=== PATIENT | female | born 1950 | race Caucasian/White ===

== ENCOUNTER 2023-05-01 10:13 | Inpatient (IN) | payer OTHER, MEDICARE ==
[~2023-05-01] VITALS: Ht 165.1 cm; Wt 41.4 kg
[2023-05-01 10:17] VITALS: BP_SYST 151; PULSE 79; RESP 18; TEMP 97.9; O2SAT 99
[2023-05-01 10:52] LABS: BASOPHILS % (AUTO) 0.6 % (0.0-2.0); EOSINOPHILS % (AUTO) 0.3 % (0.0-4.0); HEMATOCRIT 43.5 % (36-48); HEMOGLOBIN 14.8 g/dL (12.0-16.0); LYMPHOCYTES # (AUTO) 0.6 K/uL (1.0-5.5); LYMPHOCYTES % (AUTO) 7.7 % (20.5-51.5); MEAN CORPUSCULAR HEMOGLOBIN 32 pg (27-31); MEAN CORPUSCULAR HGB CONC 34 % (32-36); MEAN CORPUSCULAR VOLUME 94 fL (79.0-98.0); MONOCYTES # (AUTO) 0.9 K/uL (0.0-1.0); MONOCYTES % (AUTO) 10.8 % (1.7-9.3); NEUTROPHILS # (AUTO) 6.7 K/uL (1.8-7.7); NEUTROPHILS % (AUTO) 80.6 % (40.0-70.0); PLATELET COUNT (AUTO) 262 K/uL (130-430); RED BLOOD CELL COUNT(AUTO) 4.65 MIL/uL (4.2-6.2); RED CELL DISTRIBUTION WIDTH 13.4 % (9.0-15.0); WHITE BLOOD COUNT (AUTO) 8.3 K/uL (4.8-10.8)
[2023-05-01 11:07] LABS: INR 1.1 (0.8-1.2); PROTHROMBIN TIME 11.4 SECS (9.5-12.5)
[2023-05-01 11:08] LABS: ANION GAP 7 (5-15); CALCIUM 9.8 mg/dL (8.4-11.0); CARBON DIOXIDE 27 mmol/L (23-29); CHLORIDE 93 mmol/L (98-107); CREATININE 0.66 mg/dL (0.55-1.30); GLUCOSE 113 mg/dL (74-106); POTASSIUM 3.1 mmol/L (3.5-5.1); SODIUM SERUM 127 mmol/L (136-145); UREA NITROGEN, BLOOD 11 mg/dL (8-21)
[2023-05-01 11:18] LABS: ALANINE AMINOTRANSFERASE 51 U/L (12-78); ALBUMIN 3.7 g/dL (3.4-4.8); ASPARTATE AMINOTRANSFERASE 70 U/L (10-37); CREATINE KINASE, TOTAL 246 U/L (26-192); THYROID STIMULATING HORMONE 1.03 uIu/mL (0.34-4.82); TOTAL BILIRUBIN 0.4 mg/dL (0.0-1.0); TOTAL PROTEIN, SERUM 8.5 g/dL (6.4-8.3)
[2023-05-01 11:52] LABS: ACETONE, SERUM NEGATIVE (NEGATIVE)
[2023-05-01 12:15] LABS: CKMB RELATIVE INDEX 3.8 (0.0-2.9); CREATINE KINASE MB 9.4 ng/mL (0-3.6)
[2023-05-01] MEDS ORDERED: NACL 0.9% 1,000 ML IV ONE (12:15)
[2023-05-01] MEDS ORDERED: ROSU20TA73 PO (12:32)
[2023-05-01] MEDS ORDERED: AZEL137S7 NS (12:32)
[2023-05-01] MEDS ORDERED: LAMO25TA5 PO (12:32)
[2023-05-01] MEDS ORDERED: TRIA15CR4 RIGHT EAR (12:32)
[2023-05-01] MEDS ORDERED: SERT-436 PO (12:32)
[2023-05-01] MEDS ORDERED: MEMA28CA16 PO (12:32)
[2023-05-01] MEDS ORDERED: METRONIDAZOLE (12:32)
[2023-05-01] MEDS ORDERED: FLUO15GE BC (12:32)
[2023-05-01] MEDS ORDERED: POTASSIUM CHLORIDE 20 MEQ TAB.PRT.SR PO ONE (13:00)
[2023-05-01] MEDS ORDERED: LORazepam 2 MG/ML VIAL IVP PRN (13:45)
[2023-05-01] MEDS ORDERED: MAGNESIUM SULFATE 50 ML IV PRN (13:45)
[2023-05-01] MEDS ORDERED: ACETAMINOPHEN 325 MG TABLET PO PRN (13:45)
[2023-05-01] MEDS ORDERED: POTASSIUM CHLORIDE 20 MEQ TAB.PRT.SR PO PRN (13:45)
[2023-05-01] MEDS ORDERED: ONDANSETRON HCL 4 MG/2 ML VIAL IVP PRN (13:45)
[2023-05-01] MEDS ORDERED: DOCUSATE SODIUM 100 MG CAPSULE PO PRN (13:45)
[2023-05-01] MEDS ORDERED: ZOLPIDEM TARTRATE 5 MG TABLET PO PRN (13:45)
[2023-05-01] MEDS ORDERED: MUPIROCIN 2% TOPICAL OINTMENT 22 GM NS PRN (13:45)
[2023-05-01 15:42] VITALS: BP_SYST 152; PULSE 67; RESP 17; TEMP 97.5
[2023-05-01] MEDS: NACL 0.9% 1,000 ML IV SCH (16:55)
[2023-05-01 17:21] VITALS: BP_SYST 142; PULSE 68; RESP 16; TEMP 97.2; O2SAT 99
[2023-05-01] MEDS: ATORVASTATIN 20 MG TABLET PO SCH (20:57)
[2023-05-01] MEDS: LamoTRIgine 25 MG TABLET PO SCH (20:58)
[2023-05-01] MEDS: HEPARIN SODIUM,PORCINE 5,000 UNITS/ML VIAL SUBCUT SCH (20:59)
[2023-05-02 01:12] VITALS: BP_SYST 147; PULSE 68; RESP 18; TEMP 96.9; O2SAT 95
[2023-05-02] MEDS: NACL 0.9% 1,000 ML IV SCH ×2 (04:49→18:59)
[2023-05-02 06:20] LABS: BILIRUBIN,URINE NEGATIVE (NEGATIVE); CLARITY/URINE CLEAR (CLEAR); COLOR,URINE YELLOW (YELLOW); GLUCOSE,URINE NEGATIVE (NEGATIVE); KETONES,URINE NEGATIVE (NEGATIVE); LEUKOCYTE ESTERASE ,URINE NEGATIVE (NEGATIVE); NITRITE, URINE NEGATIVE (NEGATIVE); PROTEIN URINE NEGATIVE (NEGATIVE); UROBILINOGEN,URINE 0.2 (0.2-1.0)
[2023-05-02 06:24] LABS: BASOPHILS # (AUTO) 0.1 K/uL (0.0-0.2); BASOPHILS % (AUTO) 1.3 % (0.0-2.0); EOSINOPHILS # (AUTO) 0.2 K/uL (0.0-0.4); EOSINOPHILS % (AUTO) 3.1 % (0.0-4.0); HEMATOCRIT 41.1 % (36-48); HEMOGLOBIN 13.9 g/dL (12.0-16.0); LYMPHOCYTES # (AUTO) 0.9 K/uL (1.0-5.5); LYMPHOCYTES % (AUTO) 15.3 % (20.5-51.5); MEAN CORPUSCULAR HEMOGLOBIN 32 pg (27-31); MEAN CORPUSCULAR HGB CONC 34 % (32-36); MEAN CORPUSCULAR VOLUME 94 fL (79.0-98.0); MONOCYTES # (AUTO) 0.7 K/uL (0.0-1.0); MONOCYTES % (AUTO) 11.4 % (1.7-9.3); NEUTROPHILS % (AUTO) 68.9 % (40.0-70.0); PLATELET COUNT (AUTO) 245 K/uL (130-430); RED BLOOD CELL COUNT(AUTO) 4.39 MIL/uL (4.2-6.2); RED CELL DISTRIBUTION WIDTH 13.2 % (9.0-15.0)
[2023-05-02 06:24] LABS: BLOOD, URINE TRACE (NEGATIVE)
[2023-05-02 06:28] LABS: BACTERIA,URINE None Seen /HPF (None Seen)
[2023-05-02 06:45] LABS: ANION GAP 8 (5-15); CALCIUM 8.8 mg/dL (8.4-11.0); CARBON DIOXIDE 23 mmol/L (23-29); CHLORIDE 96 mmol/L (98-107); CREATININE 0.49 mg/dL (0.55-1.30); GLUCOSE 89 mg/dL (74-106); POTASSIUM 3.3 mmol/L (3.5-5.1); SODIUM SERUM 127 mmol/L (136-145); UREA NITROGEN, BLOOD 6 mg/dL (8-21)
[2023-05-02] MEDS ORDERED: SODIUM CHLORIDE 500 MG TABLET PO ONE (07:25)
[2023-05-02] MEDS ORDERED: POTASSIUM CHLORIDE 20 MEQ TAB.PRT.SR PO ONE (07:25)
[2023-05-02 07:35] LABS: WHITE BLOOD COUNT (AUTO) 5.8 K/uL (4.8-10.8)
[2023-05-02 07:40] VITALS: BP_SYST 122; PULSE 67; RESP 18; TEMP 97.5; O2SAT 98
[2023-05-02] MEDS: LamoTRIgine 25 MG TABLET PO SCH ×2 (08:57→20:40)
[2023-05-02] MEDS: SERTRALINE HCL 50 MG TABLET PO SCH (08:57)
[2023-05-02] MEDS: MEMANTINE HCL 5 MG TABLET PO SCH ×2 (08:57→20:41)
[2023-05-02] MEDS: HEPARIN SODIUM,PORCINE 5,000 UNITS/ML VIAL SUBCUT SCH ×2 (08:58→20:40)
[2023-05-02 12:00] VITALS: BP_SYST 139; PULSE 75; RESP 18; TEMP 97.9; O2SAT 97
[2023-05-02 12:50] VITALS: O2SAT 99
[2023-05-02 16:59] VITALS: BP_SYST 133; PULSE 84; RESP 17; TEMP 98; O2SAT 97
[2023-05-02] MEDS: ATORVASTATIN 20 MG TABLET PO SCH (20:40)
[2023-05-03 00:59] VITALS: BP_SYST 140; PULSE 60; RESP 18; TEMP 96.8; O2SAT 96
[2023-05-03 05:01] LABS: BASOPHILS # (AUTO) 0.1 K/uL (0.0-0.2); EOSINOPHILS # (AUTO) 0.4 K/uL (0.0-0.4); EOSINOPHILS % (AUTO) 5.4 % (0.0-4.0); HEMATOCRIT 40.2 % (36-48); HEMOGLOBIN 13.9 g/dL (12.0-16.0); LYMPHOCYTES % (AUTO) 14.4 % (20.5-51.5); MEAN CORPUSCULAR HEMOGLOBIN 32 pg (27-31); MEAN CORPUSCULAR HGB CONC 35 % (32-36); MEAN CORPUSCULAR VOLUME 93 fL (79.0-98.0); MONOCYTES # (AUTO) 0.7 K/uL (0.0-1.0); MONOCYTES % (AUTO) 10.2 % (1.7-9.3); NEUTROPHILS # (AUTO) 4.6 K/uL (1.8-7.7); PLATELET COUNT (AUTO) 245 K/uL (130-430); RED BLOOD CELL COUNT(AUTO) 4.35 MIL/uL (4.2-6.2); RED CELL DISTRIBUTION WIDTH 13.4 % (9.0-15.0); WHITE BLOOD COUNT (AUTO) 6.7 K/uL (4.8-10.8)
[2023-05-03 05:32] LABS: ANION GAP 8 (5-15); CALCIUM 8.9 mg/dL (8.4-11.0); CARBON DIOXIDE 25 mmol/L (23-29); CHLORIDE 96 mmol/L (98-107); CREATININE 0.42 mg/dL (0.55-1.30); GLUCOSE 93 mg/dL (74-106); SODIUM SERUM 129 mmol/L (136-145); UREA NITROGEN, BLOOD 5 mg/dL (8-21)
[2023-05-03 06:12] LABS: POTASSIUM 2.9 mmol/L (3.5-5.1)
[2023-05-03 08:00] VITALS: O2SAT 95
[2023-05-03 08:01] VITALS: BP_SYST 152; PULSE 63; RESP 18; TEMP 97.3; O2SAT 99
[2023-05-03] MEDS ORDERED: MAGNESIUM OXIDE 400 MG TABLET PO ONE (08:30)
[2023-05-03] MEDS: LamoTRIgine 25 MG TABLET PO SCH (08:37)
[2023-05-03] MEDS: SERTRALINE HCL 50 MG TABLET PO SCH (08:37)
[2023-05-03] MEDS: MEMANTINE HCL 5 MG TABLET PO SCH (08:37)
[2023-05-03] MEDS: HEPARIN SODIUM,PORCINE 5,000 UNITS/ML VIAL SUBCUT SCH (08:40)
[2023-05-03] MEDS: NACL 0.9% 1,000 ML IV SCH (08:43)
[2023-05-03 10:52] VITALS: BP_SYST 145; PULSE 65; RESP 16; TEMP 97.5; O2SAT 93
[2023-05-03 11:31] VITALS: BP_SYST 146; PULSE 61; RESP 16; TEMP 97.5; O2SAT 93
== END 2023-05-03 11:45 | disposition home health service (06) | DRG 640 ==
LOC: SED 10:13 → SMU 12:34
PROVIDERS: ADMIT General Practice; ATTEND General Practice
DX: E87.1 Hypo-osmolality and hyponatremia (principal); G93.41 Metabolic encephalopathy; E86.1 Hypovolemia; E78.5 Hyperlipidemia, unspecified; F03.90 Unspecified dementia, unspecified severity, without behavioral disturbance, psychotic disturbance, mood disturbance, and anxiety; F32.A Depression, unspecified; E87.6 Hypokalemia; Z87.891 Personal history of nicotine dependence; Z79.899 Other long term (current) drug therapy; Z88.5 Allergy status to narcotic agent
CPT/HCPCS: 36415; 70450-TC; 71045; 73560-TC; 76376; 80048; 80053; 81000; 81001; 81015; 82009; 82550; 82553; 82570; 83037; 83605; 83735; 83930; 83935; 84302; 84439; 84443; 84484; 85025; 85610-TC; 85730-TC; 96360; 97116-GP; 97163-GP; 99285; J1644